=== PATIENT | male | born 1995 | race Caucasian/White ===

== ENCOUNTER 2021-08-28 09:12 | Inpatient (IN) | payer OTHER ==
[~2021-08-28] VITALS: Ht 177.8 cm; Wt 95.2 kg
[~2021-08-28 09:12] MED LIST: ALLEGRA ALLERG180 MG PO; CETI10 PO; ERYT.5TO BOTHEYES; Flonase 0.05% N16 GM; IBUP600 PO; Norco 5-325 Ta1 EACH PO; PRED10 PO; RXPROACE PO; RXPROM25 PO; SODCHL.65S; Zofran Odt4 MG SL; Zofran4 MG PO
[2021-08-28 09:32] LABS: BASOPHILS ABSOLUTE AUTO 0.08 K/mm3 (0.00-0.23); BASOPHILS PERCENT AUTO 1 % (0-2); EOSINOPHILS ABSOLUTE AUTO 0.22 K/mm3 (0.00-0.68); EOSINOPHILS PERCENT AUTO 2 % (0-6); Hematocrit 47.6 % (37.0-53.0); Hemoglobin 15.7 g/dL (13.5-17.5); IMMATURE GRAN ABSOLUTE AUTO 0.05 K/mm3 (0.00-0.10); IMMATURE GRAN PERCENT AUTO 1 % (0-1); LYMPHOCYTES ABSOLUTE AUTO 3.63 K/mm3 (0.84-5.20); LYMPHOCYTES PERCENT AUTO 38 % (21-46); MONOCYTES ABSOLUTE AUTO 1.02 K/mm3 (0.16-1.47); MONOCYTES PERCENT AUTO 11 % (4-13); Mean Corpuscular HGB 27.3 pg (26.0-34.0); Mean Corpuscular Volume 83 fL (80-100); Mean Platelet Volume 10.3 fL (9.1-12.4); NEUTROPHILS ABSOLUTE AUTO 4.67 K/mm3 (1.96-9.15); NEUTROPHILS PERCENT AUTO 48 % (41-73); Platelet Count 339 K/mm3 (150-400); RDW Coefficient Variation 13.6 % (11.7-14.2); RDW Standard Deviation 41.1 fL (35.1-46.3); Red Blood Cell Count 5.76 M/mm3 (4.30-5.90); White Blood Cell Count 9.67 K/mm3 (4.00-11.30)
[2021-08-28 09:46] LABS: Alanine Aminotransfer (ALT/SGP 51 U/L (12-78); Albumin, Blood 4.2 g/dL (3.4-5.0); Albumin/Globulin Ratio 1.1 (0.8-1.8); Alk Phos 114 U/L (50-136); Anion Gap 5 mmol/L (6-16); Aspartate Aminotrans (AST/SGOT 20 U/L (12-37); Bilirubin, Total 0.4 mg/dL (0.1-1.0); Blood Urea Nitrogen 13 mg/dL (8-24); Bun/Creatinine Ratio 16.6 (12.0-20.0); CO2, Blood 28 mmol/L (21-32); Calcium, Blood 8.8 mg/dL (8.5-10.1); Chloride, Blood 105 mmol/L (98-108); Creatinine, Blood 0.79 mg/dL (0.60-1.20); Globulin, Blood 3.7 g/dL (2.2-4.0); Glomerular Filtration Rate >60 (60-); Glucose, Blood 117 mg/dL (70-99); Potassium, Blood 3.8 mmol/L (3.5-5.5); Sodium, Blood 138 mmol/L (136-145); Total Protein, Blood 7.9 g/dL (6.4-8.2)
--- NOTE | 2021-08-28 16:51 | NUR ---
SHIFT SUMMARY PT A&OX4, VSS/RA, PAIN TREATED WITH 0.5 DILAUDID WITH GOOD RESULTS, VOIDING USING URINAL, ANIA PO NOW, ZOFRAN GIVEN ONCE ON ARRIVAL FROM E.D.-PT REP'D N&V FROM MORPHINE. PLAN FOR NPO MIDNIGHT AND O.R. TOMORROW FOR TIB-FIB FX REPAIR, SPLINT/TAQUERIA CDI, ELEVATED. WILL REPORT TO ONCOMING NOC RN.
[2021-08-28 16:54] LABS: Influenza A, PCR NEGATIVE (NEGATIVE); Influenza B, PCR NEGATIVE (NEGATIVE); Resp Syncytial Virus, PCR NEGATIVE (NEGATIVE); SARS-Cov-2 (COVID-19) PCR, MMC NEGATIVE (NEGATIVE)
--- NOTE | 2021-08-29 04:23 | NUR ---
SHIFT SUMMARY: PT. NPO STARTED MIDNIGHT FOR TODAY'S OR. COMPLAINTS OF RLE PAIN MEDICATED, SEE EMAR. SLEPT WELL, NO S/S OF RESP./CV DISTRESS NOTED. IVF INFUSING WELL. NO NEW ISSUES NOTED.
--- NOTE | 2021-08-29 11:17 | NUR ---
PT TRANSFERED TO THE OR IN HIS BED 1110- LAST SIPS OF WATER 10AM PER DR HARPER. LR RUNNING. PT HAS OWN TEETH. IF DOMI #20 BLOOD DRAW BACK. MEDICATED WITH DILSUDID JUST PRIOR TO TX. MADE AWARE PT GOING TO OR. PT HAS CELL PHONE WITH HIM.
--- NOTE | 2021-08-29 17:14 | NUR ---
PT RETURNED FROM PACU 1645- REPORT FROM CORNELIUS- PT ON 2L O2, ALERT AND ORIENTED, STATES PAIN 10/10 ACHE TYPE PAIN. PT FALLS ASLEEP AND SATS GO DOWN TO 88%, REMINDED TO DEEP BREATH. WILL MEDICATE FOR PAIN AND START ON CLEAR DIET. CALL LIGHT IN REACH. CALL TO CHAYITO S.OShanique TO UPDATE ON STATUS. NO VOID YET
--- NOTE | 2021-08-29 19:02 | NUR ---
SUMMARY- PT HAD RODDING TO R TIB/FIB FX. RETURNED TO ROOM 211 AT 1645. MEDICATED WITH LORTAB AND DILAUDID AND STATES PARTIAL RELEIF. BUT PT IS VERY SLEEPY AND SATS GO DOWN TO LOW 90'S, NEEDS FREQ REMINDER TO TAKE DEEP BREATH. TOLERATED CLEARS AND CRACKERS SO FAR. VOIDING WITHOUT DIFFICULTY. MAY GO HOME TONIGHT.
--- NOTE | 2021-08-30 06:00 | NUR ---
SHIFT SUMMARY: PT. COMPLAINTS OF PAIN TO R KNEE MEDICATED, SEE EMAR. PT. VOIDING WELL WITH CLEAR YELLOW URING VIA THE URINAL. WENT OUT OF HIS ROOM TO GET SOME FRESH AIR PER PT. SUING A W/C, REMINDED NOT TO PUT ANY WT. TO RLE THERE IS NO WT. BEARING STATUS YET OF THIS TIME. 0605 PT. ASKED FOR A TISSUE PAPER TO USE FOR CLEANING & PLUGGING HIS NOSE FROM DRIPPING A SMALL AMOUNT OF BLOOD WHICH PT. SAID IS NORMAL FOR HIM TO HAVE ONCE OR TWICE A MONTH. ADVISED TO NOTIFY HIS MD, PT. VERBALIZED UNDERSTANDING. NO OTHER UNUSUALITIES NOTED.
--- NOTE | 2021-08-30 06:19 | NUR ---
PT. REQUESTED FOR HIS IV ACCESS TO BE REMOVED RELATED TO ITCHINESS AROUND THE AREA.
[2021-08-30] MEDS ORDERED: Norco 5-325 Ta1 EACH PO (12:24)
--- NOTE | 2021-08-30 14:23 | NUR ---
DISCHARGE PT PROVIDED WITH WRITTEN AND VERBAL DISCHARGE INSTRUCTIONS, HE REPORTED UNDERSTANDING. AQUACEL DRESSING TO RLE CHANGED SINCE IT WAS SATURATED. DRESSINGS COVERED WITH ZEROFORM AND GAUZE TO R ANKLE CHANGED PRIOR TO DISCHARGE. TAQUERIA WRAP APPLIED TO RLE. PT PROVIDED DRESSING CHANGE EDUCATION. PT REPORTED PAIN MANAGED AT TIME OF DISCHARGE. PT PROVIDED WITH SCRIPT FOR PAIN MEDICATION. PT ESCORTED OUT IN W/C BY TAISHA STUDENT NURSE.
--- NOTE | 2021-08-31 11:33 | NUR ---
08/31/21 1133 Simran Kilpatrick VERIFICATIONS: EDIT CHART.
== END 2021-08-30 14:05 | disposition home or self-care (01) | DRG 494 ==
LOC: ER 09:12 → SURS 09:13
PROVIDERS: Emergency Medicine; Orthopaedic Surgery; ADMIT Surgery
PROC: 0QSJXZZ Reposition Right Fibula, External Approach (ICD-10-PCS; 2021-08-29)
PROC: 0QSG36Z Reposition Right Tibia with Intramedullary Internal Fixation Device, Percutaneous Approach (ICD-10-PCS; principal; 2021-08-29 12:30)
DX: S82.391A Other fracture of lower end of right tibia, initial encounter for closed fracture (principal); Z20.822 Contact with and (suspected) exposure to COVID-19; S82.831A Other fracture of upper and lower end of right fibula, initial encounter for closed fracture; Z90.49 Acquired absence of other specified parts of digestive tract; Z28.21 Immunization not carried out because of patient refusal; V59.88XA Occupant (driver) (passenger) of pick-up truck or van injured in other specified transport accidents, initial encounter
CPT/HCPCS: 0241U; 29505; 70450; 71260; 72125; 73590; 73610; 74177; 80053; 85025; 96374-59; 96375-59; 96376-59; 97116; 97162; 99285-25; A9270; C1713; C1769; J0690; J1100; J1170; J2250; J2270; J2405; J2704; J3010; J7120; Q9967

== ENCOUNTER 2022-10-30 23:24 | Emergency (ER) | payer OTHER ==
[~2022-10-30] VITALS: Ht 172.7 cm; Wt 81.7 kg
[2022-10-31 03:19] LABS: Albumin, Blood 4.3 g/dL (3.4-5.0); Bilirubin, Total 0.4 mg/dL (0.1-1.0); Bun/Creatinine Ratio 16.4 (12.0-20.0); Calcium, Blood 9.2 mg/dL (8.5-10.1); Creatinine, Blood 0.85 mg/dL (0.60-1.20); Globulin, Blood 4.2 g/dL (2.2-4.0); Potassium, Blood 3.9 mmol/L (3.5-5.5); Total Protein, Blood 8.5 g/dL (6.4-8.2)
[2022-10-31 03:35] LABS: BASOPHILS ABSOLUTE AUTO 0.03 K/mm3 (0.00-0.23); BASOPHILS PERCENT AUTO 1 % (0-2); EOSINOPHILS ABSOLUTE AUTO 0.03 K/mm3 (0.00-0.68); EOSINOPHILS PERCENT AUTO 1 % (0-6); Hematocrit 46.8 % (37.0-53.0); Hemoglobin 15.7 g/dL (13.5-17.5); IMMATURE GRAN ABSOLUTE AUTO 0.01 K/mm3 (0.00-0.10); IMMATURE GRAN PERCENT AUTO 0 % (0-1); LYMPHOCYTES ABSOLUTE AUTO 1.18 K/mm3 (0.84-5.20); LYMPHOCYTES PERCENT AUTO 23 % (21-46); MONOCYTES ABSOLUTE AUTO 0.84 K/mm3 (0.16-1.47); MONOCYTES PERCENT AUTO 17 % (4-13); Mean Corpuscular HGB 27.4 pg (26.0-34.0); Mean Corpuscular HGB Conc 33.5 g/dL (31.5-36.5); Mean Corpuscular Volume 82 fL (80-100); Mean Platelet Volume 10.1 fL (9.1-12.4); NEUTROPHILS PERCENT AUTO 59 % (41-73); Platelet Count 247 K/mm3 (150-400); RDW Coefficient Variation 13.3 % (11.7-14.2); RDW Standard Deviation 39.3 fL (35.1-46.3); Red Blood Cell Count 5.74 M/mm3 (4.30-5.90); White Blood Cell Count 5.09 K/mm3 (4.00-11.30)
[2022-10-31 05:00] VITALS: BP 123/81
== END 2022-10-31 05:07 | disposition home or self-care (01) ==
LOC: ER 23:24
PROVIDERS: Student in an Organized Health Care Education/Training Program
DX: R07.9 Chest pain, unspecified (principal)
CPT/HCPCS: 36415; 71046; 80053; 83690; 84484; 85025; 93005; 93010; 96374; 99284-25; A9270; J1885

== ENCOUNTER 2024-05-28 10:12 | Day surgery (SDC) | payer OTHER ==
[~2024-05-28] VITALS: Ht 165.1 cm; Wt 99.2 kg
[~2024-05-28 10:12] MED LIST changes: +Lactated Ringer's 1,000 ML IV ONE
[2024-05-28] MEDS ORDERED: Midazolam HCl 1MG / ML 2ML Vial ONE (10:35)
[2024-05-28] MEDS ORDERED: FentaNYL Citrate 50 MCG/ML 2 ML Injection ONE (10:35)
[2024-05-28] MEDS ORDERED: propofoL 20 ML IV ONE (10:37)
[2024-05-28] MEDS ORDERED: CeFAZolin Sodium 2,000 MG VIAL ONE (10:50)
[2024-05-28] MEDS ORDERED: Lactated Ringer's 1,000 ML IV ONE (10:52)
[2024-05-28] MEDS ORDERED: Ropivacaine 0.5% HCL/PF 5 MG/ML 30ML Vial ONE (11:00)
[2024-05-28] MEDS ORDERED: Ketorolac Tromethamine 30mg Vial ONE (11:13)
[2024-05-28] MEDS ORDERED: Ondansetron HCl 2 MG / ML 2ML Vial ONE (11:13)
--- NOTE | 2024-05-28 11:38 | NUR ---
05/28/24 1138 Lesia Mosquera 0.15 MG OF EPI (1MG/ML) ADDED TO 0.5% BUPIVACAINE (150MG/ML) TO MAKE BUPIVACAINE 0.5% WITH EPI 1:200,000.
[2024-05-28] MEDS ORDERED: Bupivacaine 0.5% W/EPI 1:200000 SDV 30ML INJ ONE (11:42)
[2024-05-28] MEDS ORDERED: DiphenhydrAMINE HCl 50 MG/ML 1ML Vial ONE (12:11)
[2024-05-28] MEDS ORDERED: HYDROmorphone HCl 2 MG Tab ONE (12:24)
[2024-05-28] MEDS ORDERED: HYDROmorphone HCl/Pf 1MG SYR ONE (12:28)
[2024-05-28] MEDS ORDERED: OxyCODONE 5 mg/Acetamin 325 mg TABLET ONE (12:28)
[2024-05-28 13:27] VITALS: BP 151/96
== END 2024-05-28 13:18 | disposition home or self-care (01) ==
LOC: ORSCSDS 10:12
PROVIDERS: Orthopaedic Surgery
PROC: 0YP90YZ Removal of Other Device from Right Lower Extremity, Open Approach (ICD-10-PCS; principal; 2024-05-28 11:30)
DX: T84.84XA Pain due to internal orthopedic prosthetic devices, implants and grafts, initial encounter (principal); Z79.899 Other long term (current) drug therapy
CPT/HCPCS: A9270; J0690; J1171; J1200; J1885; J2250; J2405; J2704; J2795; J3010; J7120